=== PATIENT | female | born 1965 | race Two or more races ===

== ENCOUNTER 2019-03-05 16:19 | Emergency (ER) | payer BC, OTHER ==
[2019-03-05 16:28] VITALS: BMI 29.2
[2019-03-05] MEDS ORDERED: SODIUM CHLORIDE 0.9% 500 ML INFUS.BAG IV ONE (17:35)
--- NOTE | 2019-03-05 17:41 | PDOC ---
History of Present Illness - General Chief Complaint: Respiratory Stated Complaint: FLU/GOES UNCONCIOUS Time Seen by Provider: 03/05/19 17:18 History Source: Patient Exam Limitations: No Limitations - History of Present Illness Initial Comments: 53 y/o F, no significant pmh, presents to the ER s/p a transient syncopal episode during bowel movement w/ abdominal pain and nb diarrhea accompanied by flu like symptoms. Pt reports that 1 am today morning she was moving her bowels , during which she passed out for a few seconds on the toilet before her daughter woke her up. She then continued to move her bowels when she passed out once again. She reports hx of similar symptoms in the past for 10 years now. Never had formal work up for the episodes or seen farm management supervisor for it. Pt has also been experiencing mild cough, malaise, chills for the last 1 week. Denies n /v/sob, chest pain, abdominal pain. 03/05/19 17:37 Associated Symptoms: reports: denies symptoms, cough, fever/chills, weakness. denies: chest pain, diaphoresis, headaches, nausea/vomiting Past History - Travel Traveled outside of the country in the last 30 days: No Close contact w/someone who was outside of country & ill: No - Past Medical History Allergies/Adverse Reactions: Allergies Allergy/AdvReac Type Severity Reaction Status Date / Time hazelnut Allergy Verified 03/05/19 16:28 Asthma: No COPD: No - Psycho Social/Smoking Cessation Hx Smoking History: Never smoked Review of Systems - Review of Systems Able to Perform ROS?: Yes Is the patient limited Cymro proficient: No Constitutional: Yes: Symptoms Reported, Chills, Fever, Weakness, Weight Stable. No: Diaphoresis HEENTM: Yes: Symptoms Reported. No: Blurred Vision, Tearing, Throat Pain Respiratory: Yes: Symptoms reported, Cough. No: Shortness of Breath, Wheezing Cardiac (ROS): Yes: Symptoms Reported. No: Chest Pain, Chest Tightness ABD/GI: Yes: Symptoms Reported, Diarrhea, Abdominal cramping. No: Constipated, Nausea, Rectal Bleeding : Yes: Symptoms Reported. No: Burning, Dysuria Musculoskeletal: Yes: Symptoms Reported. No: Muscle Weakness Integumentary: Yes: Symptoms Reported. No: Pallor Neurological: Yes: Symptoms reported. No: Headache, Numbness *Physical Exam - Vital Signs Last Vital Signs Temp Pulse Resp BP Pulse Ox 99.1 F 70 18 138/76 99 03/05/19 16:25 03/05/19 16:25 03/05/19 16:25 03/05/19 16:25 03/05/19 16:25 - Physical Exam General Appearance: Yes: Nourished, Appropriately Dressed HEENT: positive: EOMI, KORTNEY, Normal ENT Inspection, Pharynx Normal Neck: positive: Trachea midline, Normal Thyroid, Supple Respiratory/Chest: positive: Lungs Clear, Normal Breath Sounds. negative: Crackles, Wheezing Cardiovascular: positive: Regular Rhythm, Regular Rate, S1, S2. negative: Murmur, Gallop/S3, Gallop/S4 Vascular Pulses: Dorsalis-Pedis (R): 2+, Doralis-Pedis (L): 2+ Gastrointestinal/Abdominal: positive: Normal Bowel Sounds, Soft. negative: Guarding, Rebound, Tenderness Extremity: positive: Normal Inspection Neurologic: positive: Fully Oriented, Alert, Normal Mood/Affect. negative: legal services manager II-XII NML intact ED Treatment Course - LABORATORY CBC & Chemistry Diagram: 03/05/19 18:27 03/05/19 18:27 Medical Decision Making - Medical Decision Making 53 y/o F, no significant pmh, presents to the ER s/p a transient syncopal episode during bowel movement w/ abdominal pain and nb diarrhea accompanied by flu like symptoms #Syncopal episodes during BM likely 2/2 to vasovagal vs flu related syncope CBC, CMP UA Flu swab IVF EKG 03/05/19 17:42 03/05/19 17:48 Discharge - Discharge Information Problems reviewed: Yes Clinical Impression/Diagnosis: Syncope Qualifiers: Syncope type: vasovagal syncope Qualified Code(s): R55 - Syncope and collapse Condition: Improved Disposition: HOME - Admission No - Follow up/Referral Referrals: Nba Gomez MD [Staff Physician] - - Patient Discharge Instructions Patient Printed Discharge Instructions: DI for Syncope in Adults (Fainting) Additional Instructions: You were seen in the emergency room for loss of consciousness While in the emergency room, we evaluated you with lab work, blood work and an EKG. We monitored you in the emergency room and found that your symptoms may have been worsened by your upper respiratory infection. Your loss of consciousness was likely due to a natural reaction that comes about from exerting yourself during certain activities like moving your bowels and urinating. To better understand and investigate the cause of your loss of consciousness, you will need to follow up with a Train Braker. We have provided you a farm management supervisor, please make sure you follow up with the farm management supervisor in regards to your symptoms and request for an Echocardiogram to be done. Please follow up with your primary care physician in 1 week Please follow up with the Train Braker within 1 week Return to the emergency room, if you experience worsening of your symptoms, chest pain, loss of consciousness lasting more than 1 minute, or worsening of any conditions. - Post Discharge Activity Work/Back to School Note: Back to Work
[2019-03-05 18:42] LABS: BASO % 0.4 % (0-2.0); EOS % 1.1 % (0-4.5); HEMATOCRIT 33.6 % (32.4-45.2); HEMOGLOBIN 11.5 GM/dL (10.7-15.3); MCHC 34.1 g/dl (32.0-36.0); MEAN CELL VOLUME 88.1 fl (80-96); MEAN PLT VOLUME 7.9 fl (7.5-11.1); MONO % 9.6 % (3.8-10.2); NEUT % 39.9 % (42.8-82.8); PLATELET COUNT 284 K/MM3 (134-434); RBC 3.82 M/mm3 (3.60-5.2); RDW 12.3 % (11.6-15.6); WHITE BLOOD COUNT 4.8 K/mm3 (4.0-10.0)
[2019-03-05 19:17] LABS: ALBUMIN 3.8 g/dl (3.4-5.0); BILIRUBIN,TOTAL 0.2 mg/dL (0.2-1); BLOOD UREA NITROGEN 11.4 mg/dL (7-18); CALCIUM 9.2 mg/dL (8.5-10.1); CREATININE 0.9 mg/dL (0.55-1.3); POTASSIUM 4.1 mmol/L (3.5-5.1); TOT PROT 7.4 g/dl (6.4-8.2)
--- NOTE | 2019-03-05 19:28 | PDOC ---
Documentation entered by Matt Dorman SCRIBE, acting as scribe for Beatrice Rey MD. Beatrice Rey MD: This documentation has been prepared by the ponchoibe, Matt Dorman SCRIBE, under my direction and personally reviewed by me in its entirety. I confirm that the documentation accurately reflects all work, treatment, procedures, and medical decision making performed by me. Attending Attestation - Resident Resident Name: Rupert Rey - ED Attending Attestation I have performed the following: I have examined & evaluated the patient, The case was reviewed & discussed with the resident, I agree w/resident's findings & plan, Exceptions are as noted - HPI HPI: 03/05/19 17:35 The patient is a 53 year old female with a past medical history of HLD and multiple syncopal episodes over the past 10 years here today for evaluation of a syncopal episode. The patient reports that she was having a bowel movement today at 1 AM when she had a syncopal episode and reports that slipped in and out of consciousness for about 20 minutes. She notes that she has diarrhea and that she did not fall of the toilet. She reports that during her previous episodes of syncope she has had diarrhea and abdominal pain but does not have any abdominal pain today. She also reports that she had chills, subjective fever , cough, and congestion. Patient denies headache, lightheadedness. Denies chest pain, shortness of breath. Denies abdominal pain. Allergies: hazelnut - Physicial Exam PE: 03/05/19 17:36 GENERAL: Well developed, well nourished. Awake and alert. No acute distress. HEENT: +rhinorrhea Normocephalic, atraumatic. PERRLA, EOMI. No conjunctival pallor. Sclera are non- icteric. Moist mucous membranes. Oropharynx is clear. NECK: Supple. Full ROM. No JVD. Carotid pulses 2+ and symmetric, without bruits. No thyromegaly. No lymphadenopathy. CARDIOVASCULAR: Regular rate and rhythm. No murmurs, rubs, or gallops. Distal pulses are 2+ and symmetric. PULMONARY: No evidence of respiratory distress. Lungs clear to auscultation bilaterally. No wheezing, rales or rhonchi. ABDOMINAL: Soft. Non-tender. Non-distended. No rebound or guarding. No organomegaly. Normoactive bowel sounds. MUSCULOSKELETAL Normal range of motion at all joints. No bony deformities or tenderness. No CVA tenderness. EXTREMITIES: No cyanosis. No clubbing. No edema. No calf tenderness. SKIN: Warm and dry. Normal capillary refill. No rashes. No jaundice. NEUROLOGICAL: Alert, awake, appropriate. Cranial nerves 2-12 intact. No deficits to light touch and temperature in face, upper extremities and lower extremities. No motor deficits in the face, upper extremities and lower extremities. Normoreflexic in the upper and lower extremities. Normal speech. Toes are down- going bilaterally. Gait is normal without ataxia. PSYCHIATRIC: Cooperative. Good eye contact. Appropriate mood and affect. - Medical Decision Making 03/05/19 18:21 HPI 53-year-old female who is had flu symptoms including rhinorrhea ,cough, muscle aches ,fever, chills ,nausea and some loose stools since last Wednesday presents because of a apparent syncopal episode while having a bowel movement at 1 AM this morning The daughter reports that she was leaning against the sink and seemed to have passed out. Patient did not fall on the floor or sustain any head trauma The patient has had several instances of this in the past decade usually about 2 episodes a year She has never had a cardiac work-up including an echo EKG is normal sinus rhythm at 66 bpm, QTC is equal to 436 ms, no signs of acute ischemia 03/05/19 18:22 03/05/19 18:27 03/05/19 21:07 She was encouraged to follow-up with her primary care doctor and she was gien a cardilogy referral CBC was normal as was her chemistry a urine and she had negative influenza swabs Patient asymptomatic for any kind of chest pain, shortness of breath, dizziness , lightheadedness, headache during her stay
[2019-03-05 19:59] VITALS: BP 144/81; PULSE 71; TEMP 99
[2019-03-05 20:00] LABS: EPI CELLS 1.7 /HPF (0-5/HPF); HYALINE CASTS 0 /lpf (0-8); PH,URINE 5.5 (5.0-8.0); URINE APPEARANCE CLEAR; URINE BACTERIA 17.4 /hpf (NEGATIVE); URINE BILIRUBIN NEGATIVE (NEGATIVE); URINE COLOR YELLOW; URINE GLUCOSE (UA) NEGATIVE (NEGATIVE); URINE KETONE NEGATIVE (NEGATIVE); URINE LEUK ESTERASE NEGATIVE (NEGATIVE); URINE NITRITE NEGATIVE (NEGATIVE); URINE PROTEIN NEGATIVE (NEGATIVE); URINE RBC 2 /hpf (0-4); URINE UROBILINOGEN 0.2 mg/dL (0.2-1.0); URINE WBC 2 /hpf (0-5)
--- NOTE | 2019-03-06 10:08 | EKG ---
Test Reason : Blood Pressure : / mmHG Vent. Rate : 066 BPM Atrial Rate : 066 BPM P-R Int : 132 ms QRS Dur : 082 ms QT Int : 416 ms P-R-T Axes : 044 014 024 degrees QTc Int : 436 ms NORMAL SINUS RHYTHM POSSIBLE LEFT ATRIAL ENLARGEMENT BORDERLINE ECG NO PREVIOUS ECGS AVAILABLE Confirmed by SURJIT AKERS MD ([id number]) on 03/06/2019 10:07:49 AM Referred By: Confirmed By:SURJIT AKERS MD
== END 2019-03-05 21:00 | disposition home or self-care (01) ==
LOC: JER 16:19
DX: R55 Syncope and collapse (principal); Z88.8 Allergy status to other drugs, medicaments and biological substances
CPT/HCPCS: 36415; 80053; 81003; 85025; 87804; 93005; 93010; 99282-25